=== PATIENT | female | born 1935 | race Caucasian/White ===

== ENCOUNTER 2017-01-15 11:05 | Outpatient (CLI) | payer BC, MEDICARE, OTHER | END 2017-01-15 11:06 | disposition home or self-care (01) | DX: E04.2 Nontoxic multinodular goiter (principal) ==

== ENCOUNTER 2018-02-25 14:07 | Outpatient (CLI) | payer MEDICARE ==
--- NOTE | 2018-02-25 15:32 | Mammography Report ---
DIGITAL DIAGNOSTIC RIGHT MAMMOGRAM: 02/25/2018 CLINICAL INDICATION: Right breast pain. The patient with history of left breast cancer, status post mastectomy. COMPARISON: 05/04/2014, 09/25/2012, 02/24/2009, 12/30/2007. TECHNIQUE: Right CC, MLO, true lateral views. FINDINGS: The right breast demonstrates heterogeneously dense fibroglandular parenchyma. Coarse, typically benign calcifications are present. No suspicious masses, clustered microcalcifications, or regions of architectural distortion are identified. IMPRESSION: BENIGN FINDINGS. RECOMMENDATION: ROUTINE ANNUAL SCREENING UNLESS OTHERWISE CLINICALLY INDICATED. BIRADS CATEGORY 2-BENIGN FINDINGS. STANDARD QUALIFYING STATEMENTS: 1. This examination was reviewed with the aid of Computer-Aided Detection (CAD). 2. A negative or benign imaging report should not delay biopsy if clinically suspicious findings are present. Consider surgical consultation if warranted. More than 5% of cancers are not identified by imaging. 3. Dense breasts may obscure an underlying neoplasm. TD: 02/25/2018 15:30
== END 2018-02-25 14:08 | disposition home or self-care (01) ==
LOC: DI 14:07
PROVIDERS: ATTEND Internal Medicine
DX: N64.4 Mastodynia (principal); Z85.3 Personal history of malignant neoplasm of breast; Z90.12 Acquired absence of left breast and nipple

== ENCOUNTER 2019-03-30 15:08 | Outpatient (CLI) | payer MEDICARE ==
--- NOTE | 2019-03-31 12:26 | Mammography Report ---
Reason: ROUTINE MAMMO, HX LT BREAST CA Procedure Date: 03/30/2019 Accession Number: [id number] / [id number] Procedure: [place] - Screening Mammo Right w/Bertin CPT Code: FULL RESULT: EXAM: Screening Mammo Right w/Bertin DATE: 03/30/2019 3:36 PM CLINICAL HISTORY: History of left breast cancer status post mastectomy. For routine screening. TECHNIQUE: (R) - Right CC and MLO views were obtained. COMPARISON: 02/25/2018, 05/04/2014 PARENCHYMAL PATTERN: (A) - The breasts demonstrate scattered fibroglandular densities bilaterally. FINDINGS: There is no significant interval change. There are no suspicious masses, calcifications, or areas of distortion. IMPRESSION: Negative examination. BI-RADS category 1. RECOMMENDATION: (ANNUAL) - Recommend routine annual right screening mammography. BI-RADS CATEGORY: (1) - Negative. STANDARD QUALIFYING STATEMENTS: 1. This examination was not reviewed with the aid of Computer-Aided Detection (CAD). 2. A negative or benign imaging report should not preclude biopsy if clinically suspicious findings are present. 3. Dense breasts may obscure an underlying neoplasm. 4. This examination was reviewed with the aid of 3D breast imaging (tomosynthesis).
== END 2019-03-30 15:09 | disposition home or self-care (01) ==
LOC: DI 15:08
PROVIDERS: ATTEND Internal Medicine
DX: Z12.31 Encounter for screening mammogram for malignant neoplasm of breast (principal); Z85.3 Personal history of malignant neoplasm of breast; Z90.12 Acquired absence of left breast and nipple
CPT/HCPCS: 77063

== ENCOUNTER 2022-04-04 12:45 | Outpatient (CLI) | payer MEDICARE ==
--- NOTE | 2022-04-05 16:22 | Mammography Report ---
UNILATERAL RIGHT DIGITAL SCREENING MAMMOGRAM 3D/2D: 04/04/2022 CLINICAL: Routine screening. Personal history of left breast cancer. Comparison is made to exams dated: 03/30/2019 mammogram, 02/25/2018 mammogram, 05/04/2014 mammogram, and 09/25/2012 mammogram - [facility]. The tissue of right breast is heterogeneously dense. This may lower the sensitivity of mammography. There are benign calcifications in the right breast. No significant masses, calcifications, or other findings are seen in the breast. There has been no significant interval change. IMPRESSION: BENIGN There is no mammographic evidence of malignancy. A 1 year screening mammogram is recommended. This exam was interpreted at Station ID: [id number]. NOTE: For mammograms, a report in lay terms will be sent to the patient. Approximately 15% of breast malignancies will not be visualized mammographically. In the management of a palpable breast mass, a negative mammogram must not discourage biopsy of a clinically suspicious lesion. Electronically Signed By: Shashi crisostomo/leoncio:04/04/2022 17:00:21 ACR BI-RADS Category 2: Benign Finding(s) 3342F PARENCHYMAL PATTERN: (D) - The breast(s) demonstrate(s) heterogeneously dense fibroglandular reilly fish. BI-RADS CATEGORY: (2) - 2 RECOMMENDATION: (ANNUAL) - Recommend routine annual screening mammography. [id number] 1 year screening LATERALITY: (B)
== END 2022-04-04 12:46 | disposition home or self-care (01) ==
LOC: DI.N 12:45
PROVIDERS: ATTEND Internal Medicine
DX: Z12.31 Encounter for screening mammogram for malignant neoplasm of breast (principal); Z85.3 Personal history of malignant neoplasm of breast

== ENCOUNTER 2022-08-28 10:49 | Outpatient (CLI) | payer MEDICARE ==
[2022-08-28 11:44] LABS: RHEUMATOID FACTOR NEGATIVE (Negative)
[2022-08-29 07:09] LABS: RPR Non Reactive (Non Reactive)
[2022-08-29 18:07] LABS: ANTI-DNA (DS) AB QN <1 IU/mL (0-9); CENTROMERE B ANTIBODIES <0.2 AI (0.0-0.9); CHROMATIN ANTIBODIES <0.2 AI (0.0-0.9); JO-1 AB <0.2 AI (0.0-0.9); RIBOSOMAL P ANTIBODIES <0.2 AI (0.0-0.9); RNP ANTIBODIES <0.2 AI (0.0-0.9); SCLERODERMA-70 ANTIBODIES <0.2 AI (0.0-0.9); SJOGREN'S ANTI-SS-A <0.2 AI (0.0-0.9); SJOGREN'S ANTI-SS-B <0.2 AI (0.0-0.9); SMITH ANTIBODIES 0.2 AI (0.0-0.9); SMITH/RNP ANTIBODIES <0.2 AI (0.0-0.9)
[2022-08-30 11:10] LABS: ANGIOTENSIN-CONVERTING ENZYME 30 U/L (14-82)
== END 2022-08-28 10:50 | disposition home or self-care (01) ==
LOC: LAB 10:49
PROVIDERS: ATTEND Ophthalmology
DX: H20.00 Unspecified acute and subacute iridocyclitis (principal)
CPT/HCPCS: 81374; 81599; 82164; 85549; 86225; 86235; 86430; 86592; 86780

== ENCOUNTER 2022-09-03 17:49 | Outpatient (CLI) | payer MEDICARE ==
--- NOTE | 2022-09-04 14:41 | XRAY Report ---
PROCEDURE: Chest 2 View X-Ray INDICATIONS: XRAY TECHNIQUE: 2 view(s) of the chest. COMPARISON: None. FINDINGS: Surgical changes and devices: None. Lungs and pleura: No pleural effusions or pneumothorax. Lungs are clear. There is a moderate size hiatal hernia. Mediastinum: Mediastinal contours are normal. Heart size is normal. Bones and chest wall: No suspicious bony abnormalities. Soft tissues appear unremarkable. IMPRESSION: Chest without acute cardiopulmonary abnormalities or focal airspace disease. Moderate-si zed hilar hernia. Reviewed by: Shashi Thomas MD on 09/04/2022 2:40 PM PDT Approved by: Shashi Thomas MD on 09/04/2022 2:40 PM PDT Station ID: [id number]
== END 2022-09-03 17:50 | disposition home or self-care (01) ==
LOC: DI 17:49
PROVIDERS: ATTEND Ophthalmology
DX: H20.00 Unspecified acute and subacute iridocyclitis (principal); K44.9 Diaphragmatic hernia without obstruction or gangrene

== ENCOUNTER 2024-02-26 06:43 | Outpatient (CLI) | payer MEDICARE | END 2024-02-26 23:59 | disposition critical access hospital (66) | LOC: EMS 06:43 | DX: R53.1 Weakness (principal); I48.91 Unspecified atrial fibrillation; M54.50 Low back pain, unspecified | CPT/HCPCS: A0425; A0429 ==

== ENCOUNTER 2024-02-26 06:51 | Emergency (ER) | payer MEDICARE ==
--- NOTE | 2024-02-26 07:13 | ED Physician Documentation ---
PD HPI FOCAL NEURO - Stated complaint Stated Complaint: L LEG WEAKNESS - Chief complaint Chief Complaint: Ext Problem - History obtained from History obtained from: Patient - History of Present Illness Timing - onset: How many weeks ago (has had lower back pain for weeks, with worse the past several days, and this morning noted left leg weakness/giving out, when pain in back provoked by walking.) Timing - duration: Weeks Timing - details: Gradual onset, Still present Severity of deficit: Severe Weakness: Leg (lower leg area), Left. No: Face, Arm Numbness: No: Face, Arm, Leg Associated symptoms: Back pain. No: Headache, Nausea / vomiting, Neck pain Recently seen: Not recently seen Review of Systems Constitutional: denies: Fever, Chills Nose: denies: Rhinorrhea / runny nose, Congestion Throat: denies: Sore throat Cardiac: denies: Chest pain / pressure, Palpitations Respiratory: denies: Cough GI: denies: Abdominal Pain, Nausea, Vomiting, Diarrhea : denies: Incontinent Skin: denies: Rash, Lesions Neurologic: reports: Focal weakness (left leg this morning when had signficant pain on walking.), Altered mental status. denies: Numbness PD PAST MEDICAL HISTORY - Past Medical History Past Medical History: Yes Cardiovascular: Hypertension, Atrial fibrillation GI: GERD Other Past Medical History: Breast CA - Past Surgical History Past Surgical History: Yes /[employer]: Mastectomy - Present Medications Home Medications: Ambulatory Orders Medication Instructions Recorded Confirmed Amlodipine Besylate [Norvasc] 5 mg PO DAILY 02/26/24 02/26/24 Aspirin [[place] Aspirin] 81 mg PO DAILY 02/26/24 02/26/24 Ca/D3/Mag Ox/Zinc/Hairspring Cutter/Erlin/Bor 1 each PO DAILY 02/26/24 02/26/24 [Calcium [id number] Chw Tb] HYDROcod/ACETAM 5/325 [[place] 5/325] 0.5 - 1 ea PO Q8H PRN #12 tablet 02/26/24 Lidocaine Patch 5% [Lidoderm Patch] 1 patch TOP DAILY PRN #10 patch 02/26/24 Metoprolol Tartrate [Lopressor] 50 mg PO BID 02/26/24 02/26/24 Omeprazole 20 mg PO DAILY 02/26/24 02/26/24 Potassium Chloride [Klor-Con] 20 meq PO DAILY 02/26/24 02/26/24 dexAMETHasone [Decadron] 4 mg PO DAILY #7 tablet 02/26/24 hydroCHLOROthiazide [Hydrodiuril] 12.5 mg PO DAILY 02/26/24 02/26/24 - Allergies Allergies/Adverse Reactions: Allergies Allergy/AdvReac Type Severity Reaction Status Date / Time No Known Drug Allergies Allergy Verified 02/26/24 07:05 - Social History Does the pt smoke?: No Smoking Status: Never smoker Does the pt drink ETOH?: No Does the pt have substance abuse?: No - Immunizations Immunizations are current?: Yes - POLST Patient has POLST: No PD ED PE NORMAL - Vitals Vital signs reviewed: Yes - General General: Alert and oriented X 3, Well developed/nourished, Other (appears in pain with low back movement and lifting of legs. ) - Abdomen Abdomen: Soft, Non tender - Back Back: No spinal TTP (some tender midline and left midline in lumbar area. No focal trigger point though. ). No: No CVA TTP - Derm Derm: Normal color, Warm and dry - Extremities Extremities: No edema, No calf tenderness / cord - Neuro Neuro: Alert and oriented X 3, No motor deficit (reluctant to lift legs behzad left due to pain elicited in lower back. ), No sensory deficit, Normal speech, Other (normal reflexes at patellar area. Susanne and face without any noted weakness. ) Results - Vitals Vitals: Oxygen O2 Source Room air Oxygen Flow Rate 2 - Labs Labs: Laboratory Tests 02/26/24 02/26/24 07:52 07:52 WBC 6.0 RBC 3.96 L Hgb 11.1 L Hct 34.8 L MCV 87.9 MCH 28.0 MCHC 31.9 L RDW 14.4 Plt Count 311 MPV 9.3 Neut # (Auto) 4.4 Lymph # (Auto) 0.9 L Stokes # (Auto) 0.4 Eos # (Auto) 0.0 Baso # (Auto) 0.0 Absolute Nucleated RBC 0.00 Nucleated RBC % 0.0 Sodium 126 L Potassium 4.1 Chloride 94 L Carbon Dioxide 22 Anion Gap 10.0 BUN 18 Creatinine 0.8 Estimated GFR (MDRD) 68 L Glucose 135 H Calcium 9.2 Phosphorus 3.1 Magnesium 1.6 L Total Bilirubin 0.7 AST 17 ALT 13 Alkaline Phosphatase 59 Total Protein 6.4 Albumin 3.6 Globulin 2.8 Albumin/Globulin Ratio 1.3 Lipase 15 - Rads (name of study) lumbar MRI Relevant Findings:: Prelim report reviewed (anterior disc protrusion (not posterior) L2 level. L3/L4 right foraminal stenosis severe. General DDD. ) PD Medical Decision Making - ED course Complexity details: reviewed results (MRI with DDD, anterior disc protrusion, and severe foraminal stenosis right L3/L4 but no left severe stenosis. Presume left leg weak due to pain reflex/response.), re-evaluated patient (pain is better with some meds here in ED Toradol and Diladuid. Given steroid dose too as MRI did not some edema around anterior disc L2 suggesting newness of injury, but is not impinging central canal. ), considered differential (has had low back pain for several days and hurts with ROM, and pain with lfting left leg/both legs. Noted feeling of left leg weak when trying to walk today, with pain exac in low back with it. No numbness per se. No incontinence. Concern for canal stenosis or severe disc process. I feel MRI best.), d/w patient ED course: note made of patient being initially bradycardic but no chest symptoms nor dy spnea. BP is okay. Subsequently HR was at 78-80s without intervention but pain improved. So could be normal variation for pt who is on rate modulating meds (beta jarrett). or could be vagal with the pain earlier and less with pain improving. Departure - Departure Disposition: 01 Home, Self Care Clinical Impression: Low back pain, Left leg weakness, Foraminal stenosis of lumbar region Condition: Stable Record reviewed to determine appropriate education?: Yes Instructions: ED Sciatica Follow-Up: Leslie Archuleta MD [Primary Care Provider] - Prescriptions: dexAMETHasone [Decadron] 4 mg PO DAILY #7 tablet Lidocaine Patch 5% [Lidoderm Patch] 1 patch TOP DAILY PRN #10 patch PRN Reason: pain HYDROcod/ACETAM 5/325 [[place] 5/325] 0.5 - 1 ea PO Q8H PRN #12 tablet PRN Reason: Pain Comments: The MRI of your low back showed some disc protrusion anteriorly so away from the spinal cord area. There was some tightness at the nerve roots on the right side for 2 levels and general arthritis overall. At this point there does not appear to be any injury of the cord and no "pinched nerves" to the left side. You can still have weakness of the leg related to pain and also some pressure on the nerves separate from tightness at the nerve opening etc. I would suggest continuing with some Tylenol 500 to 650 mg 4 times daily regularly for the next week or so. Add half to 1 tablet hydrocodone every 8 hours or so if needed for worse pain. This would be meant infrequently and be wary that it can cause sleepiness and constipation etc. There was some inflammation noted on the CT correction MRI scan at one of the disc levels so I would add Decadron steroid anti-inflammatory daily for a week as well. Activity as tolerated. Follow-up with your primary care. See if they would wish to refer you onto a back specialist for further evaluation or treatments. I sent your prescription to your preferred pharmacy. I am prescribing a short course of narcotic pain medication for you. These are potentially dangerous and addictive medications that should be used carefully. These medications may constipate you. Take an kdnj-eny-dnpydjv stool softener such as docusate twice daily with plenty of water while taking these medications. If you go 24 hours without a bowel movement, take krbe-wmo-ishtruy MiraLAX, per package instructions. Do not drink or drive while taking these medications. If you received narcotic or sedating medications while in the emergency department do not drive for 24 hours. Store this medication in a safe, secure place and out of reach of children. It is a violation of federal law to give or sell this medication to another person or to use in a manner other than prescribed. The ED will not refill narcotic prescriptions, including prescriptions lost or stolen. You can dispose of unwanted medications at the [facility]'s office or at several pharmacies such as [facility]. Forms: PCP List Discharge Date/Time: 02/26/24 14:56
[2024-02-26] MEDS: SODIUM CHLORIDE 0.9% 1,000 ML IV STA (07:47)
[2024-02-26] MEDS: KETOROLAC 15 MG/ML VIAL IVP STA (07:59)
[2024-02-26 08:12] LABS: BASOPHILS % (AUTO) 0.3 %; HCT - HEMATOCRIT 34.8 % (37.0-47.0); HGB - HEMOGLOBIN 11.1 g/dL (12.0-16.0); LYMPHOCYTES # (AUTO) 0.9 10^3/uL (1.5-3.5); LYMPHOCYTES % (AUTO) 15.7 %; MEAN CORPUSCULAR HGB CONC 31.9 g/dL (32.0-36.0); MEAN CORPUSCULAR VOLUME 87.9 fL (81.0-99.0); MEAN PLATELET VOLUME 9.3 fL (7.9-10.8); MONOCYTES # (AUTO) 0.4 10^3/uL (0.0-1.0); MONOCYTES % (AUTO) 7.2 %; NEUTROPHILS # (AUTO) 4.4 10^3/uL (1.5-6.6); NEUTROPHILS % (AUTO) 74.1 %; PLT - PLATELET COUNT 311 10^3/uL (130-450); RED BLOOD COUNT 3.96 10^6/uL (4.20-5.40); RED CELL DISTRIBUTION WIDTH 14.4 % (12.0-15.0)
[2024-02-26 08:37] LABS: ALBUMIN 3.6 g/dL (3.2-5.5); ALBUMIN/GLOBULIN RATIO 1.3 (1.0-2.2); BILIRUBIN,TOTAL 0.7 mg/dL (0.2-1.0); CALCIUM 9.2 mg/dL (8.5-10.3); CREATININE 0.8 mg/dL (0.6-1.3); MAGNESIUM 1.6 mg/dL (1.7-2.3); PHOSPHORUS 3.1 mg/dL (2.5-5.0); POTASSIUM 4.1 mmol/L (3.5-4.5); TOTAL PROTEIN 6.4 g/dL (6.4-8.9)
--- NOTE | 2024-02-26 12:47 | MRI Report ---
PROCEDURE: Lumbar Spine WO INDICATIONS: progressive low back pain and leg weakness TECHNIQUE: Noncontrast sagittal T1 spin echo and T2 fast echo, sagittal STIR, axial T1 and T2 fast spin echo thr ough the lumbar spine. In cases with scoliosis, additional coronal T2 fast spin echo may be performe d. COMPARISON: None. FINDINGS: Image quality: Excellent. Alignment and Curvature: 4 mm retrolisthesis of L2 on L3, 4 mm retrolisthesis of L3 on L4. 4 mm retro listhesis of L4 on L5. Mild dextrocurvature centered at L1. Bone Marrow: Marrow is of normal overall signal. No acute vertebral body compression fractures. Spinal Cord: Conus medullaris terminates at the top of L2 level. Visualized cord demonstrates олег l signal and size. Paraspinous Soft Tissues: No paravertebral masses. T12-L1: Normal in appearance. L1-L2: Normal in appearance. L2-L3: Retrolisthesis of L2 on L3. Note is made of the presence of a large anterior disc extrusion at L2-L3 with superiorly extruded disc material anterior to the L2 vertebral body. There is associat ed edema present in the L2 and L3 vertebral bodies. Anterior disc extrusions can be associated with p ain. Facet hypertrophy. No canal stenosis. Mild to moderate bilateral foraminal stenosis. L3-L4: Retrolisthesis of L3 and L4. Facet hypertrophy. Severe right foraminal narrowing with right foraminal L3 nerve root impingement. Moderate left foraminal narrowing with mild flattening deformity on the exiting left L3 nerve root. L4-L5: Minimal disc bulge. Facet hypertrophy. Borderline canal stenosis. Severe right foraminal ryley rowing with right foraminal L4 nerve root impingement. Moderate right foraminal narrowing with mild f lattening deformity on the exiting right L4 nerve root. L5-S1: Somewhat prominent bilateral facet hypertrophy. No canal stenosis or significant foraminal s tenosis. IMPRESSION: 1. There is multilevel underlying facet arthropathy, resulting in multilevel retrolisthesis 2. No canal stenosis. 3. There is severe right foraminal narrowing at L3-L4 and L4-L5 with foraminal L3 and L4 nerve root i mpingement at these levels. 4. Note is made of a large anterior disc extrusion at L2-L3, anterior to the vertebral bodies, with s uperior disc material extending along the L2 vertebral body. This is associated with edema in the L2 and L3 vertebral bodies subjacent to the disc space. Anterior disc extrusions can be associated with pain. Reviewed by: Dagoberto Wang MD on 02/26/2024 12:46 PM PDT Approved by: Dagoberto Wang MD on 02/26/2024 12:46 PM PDT Station ID: [id number]
[2024-02-26] MEDS: ACETAMINOPHEN 325 MG TABLET PO STA (14:42)
[2024-02-26] MEDS: DEXAMETHASONE 10 MG/ML VIAL IVP STA (14:44)
[2024-02-26] MEDS: HYDROmorphone 0.5 MG/0.5 ML SYRINGE IVP STA (14:48)
[2024-02-26 14:59] VITALS: BP 152/54; O2SAT 97
== END 2024-02-26 14:56 | disposition home or self-care (01) ==
LOC: EDBD → EDUNIT# → ED 06:51
DX: M54.50 Low back pain, unspecified (principal); R53.1 Weakness; M48.061 Spinal stenosis, lumbar region without neurogenic claudication; R00.1 Bradycardia, unspecified; I10 Essential (primary) hypertension; I48.91 Unspecified atrial fibrillation; Z79.82 Long term (current) use of aspirin; K21.9 Gastro-esophageal reflux disease without esophagitis; Z79.899 Other long term (current) drug therapy
CPT/HCPCS: 36415; 72148; 80053; 83690; 83735; 84100; 85025; 93005; 96374; 96375; 99283; 99284; A9270; J1170